=== PATIENT | male | born 1980 | race Caucasian/White ===

== ENCOUNTER 2024-07-22 08:39 | Outpatient (CLI) | payer OTHER, SELFPAY ==
--- NOTE | ~2024-07-22 | XR_ITS ---
XR chest 2V Ordering provider: Brayan Pack DO History: 43 years Male with . R05.9 - Cough, unspecified . Comparison: None. FINDINGS: MEDIASTINUM: The cardiac silhouette is not enlarged. LUNGS: No effusions or pneumothorax. . Prominent bronchovascular markings in the lower lobes with min imal interstitial changes suggestive of pneumonitis. OTHER: No free air under the diaphragm. IMPRESSION: Bilateral lower lobe pneumonitis. Follow-up advised. Reviewed, dictated and finalized at location A. LITIES ASSISTANT
== END 2024-07-22 08:40 | disposition home or self-care (01) ==
PROVIDERS: PCP Internal Medicine; Visit Provider Internal Medicine
DX: J98.4 Other disorders of lung (principal)
CPT/HCPCS: 71046

== ENCOUNTER 2024-10-14 07:16 | Outpatient (CLI) | payer OTHER, SELFPAY ==
--- NOTE | ~2024-10-14 | XR_ITS ---
Clinical Indication: Cough PA and lateral views of the chest: Comparison: 07/22/2024 Findings: The lungs are clear, without evidence of focal consolidation or pleural effusion. Cardiome diastinal silhouette is within normal limits. Bones and soft tissues are unremarkable. Impression: Normal chest. Reviewed, dictated and finalized at location . ING MACHINE OPERATOR Impression: Normal chest.
== END 2024-10-14 07:17 | disposition home or self-care (01) ==
PROVIDERS: PCP Internal Medicine; Visit Provider Internal Medicine
DX: J98.4 Other disorders of lung (principal)
CPT/HCPCS: 71046